=== PATIENT | female | born 1945 | race Caucasian/White ===

== ENCOUNTER → 2016-11-13 11:11 | Outpatient (CLI) | payer MEDICARE, BC ==
[~2016-11-13] VITALS: Ht 162.6 cm; Wt 104.5 kg
--- NOTE | ~2016-11-13 | HEMODYNAMI ---
PATIENT:RUSH PATEL MEDICAL RECORD: [id number] : 47 LOCATION:[facility] ADMISSION DATE: 11/13/16 Generatedon:11/13/201614:08 Patient name: RUSH PATEL Patient #: [id number] SSN: : 1945 Date of study: 11/13/2016 Page: Of Hemodynamic Procedure Report Patient Data Patient Demographics Procedure consent was obtained First Name: RUSH Gender: Female Last Name: AMANDA : 1945 Middle Initial: A Age: 70 year(s) Patient #: [id number] Race: Unknown Additional ID: [id number] Contact details Address: [facility] State: [place] City: [place] Zip code: [address] Past Medical History Allergies Allergen Reaction Date Comments Reported Other 11/13/2016 PCN, allergy Tetracyclines,Erythromycin base Admission Admission Data Admission Date: 11/13/2016 Admission Time: 11:11 Admit Source: Other Height (in.): 64 BSA: 2.08 (m2) Height (cm.): 162.56 BMI: 39.56 (kg/m2) Weight (lbs.): 230.47 Weight (kg.): 104.54 Lab Results Lab Result Date: 11/13/2016 Lab Result Time: 12:17 Biochemistry Name Units Result Min Max BUN mg/dl 22 --(----)-* 7 18 Creatinine mg/dl 1.4 --(----)*- 0.6 1.3 CBC Name Units Result Min Max Hematocrit % 41.3 -*(----)-- 42 54 Hemoglobin g/dl 12.9 -*(----)-- 13.5 17.5 Coagulation Name Units Result Min Max INR units 1.24 --(----)*- 0.85 1.17 PT sec 15.5 --(----)*- 11.6 15 Procedure Procedure Types Cath Procedure Diagnostic Procedure [facility] w/Coronaries Miscellaneous Procedures Moderate Sedation up to 15 minutes Procedure Description Procedure Date Procedure Date: 11/13/2016 Procedure Start Time: 13:56 Procedure End Time: 14:05 Procedure Staff Name Function Teodoro Cabello MD Performing Physician Alfredo Paul RT Scrub Silvio Kim RN Nurse Kathrin Cortes RT Monitor Berhane Welch RN Security Systems Integrator Procedure Data Cath Procedure Fluoroscopy Diagnostic fluoroscopy Total fluoroscopy Time: 1 time: 1 min min Diagnostic fluoroscopy Total fluoroscopy dose: 268 dose: 268 mGy mGy Contrast Material Contrast Material Type Amount (ml) Isovue 300 63 Entry Location Entry Primary Successful Side Size Upsize Upsize Entry Closure Succes sful Closure Location (Fr) 1 (Fr) 2 (Fr) Remarks Device Remarks Femoral Right 5 Fr Exoseal artery Estimated blood loss: 10 ml Diagnostic catheters Device Type Used For End Catheter Placement Cordis 5Fr JL 4.0 Procedure Catheter (MP) Cordis 5Fr 3DRC Catheter Procedure (MP) Cordis 5Fr Pigtail Procedure Catheter (MP) Procedure Complications No complications Procedure Medications Medication Administration Route Dosage Oxygen NC 2 l/min Lidocaine 2% added to field 20 Heparin Flush Bag added to field 2 bags (1000units/500ml NS) 0.9% NaCl I.V. 100 ml/hr Versed I.V. 1 mg Fentanyl I.V. 50 mcg Versed I.V. 1 mg Fentanyl I.V. 50 mcg Fentanyl I.V. 50 mcg Hemodynamics Rest BSA: 2.08 (m2) HGB: 12.9 (g/dl) O2 Consumption: Estimated: 220.52 (ml/min) O2 Co nsumption indexed: Estimated:106.02 (ml/min/m) Heart Rate: 106 (bpm) Pressure Samples Time Site Value (mmHg) Purpose Heart Use Rate(bpm) 14:01 LV 165/7,34 Snapshot 77 14:02 AO 151/73(105) Pullback 81 14:02 LV 180/15,40 Pullback 81 Gradients Valve Time Site 1 Site 2 Mean SEP/DFP Peak To Heart Use (mmHg) (sec/min) Peak Rate (mmHg) (bpm) Aortic 14:02 LV AO 31 27 29 81 180/15,40 151/73(105) Calculations Valve P-P Mean Valve Index Valve Source Name Gradient Area Flow (cm2) Aortic 29 31 29 31 Snapshots Pre Cath Intra NCS Post Cath Vital Signs Time Heart Resp SPO2 NIBP (mmHg) Rhythm Pain Sedation Rate (ipm) (%) Status Level (bpm) 13:42:20 65 29 99 141/73(129) NSR 0 (11) 10(A) , No pain 13:46:42 70 27 100 160/73(129) NSR 0 (11) 10(A) , No pain 13:51:04 78 16 97 137/70(115) NSR 0 (11) 9(A) , No pain 13:55:22 77 17 97 122/61(98) NSR 0 (11) 9(A) , No pain 13:59:39 78 16 98 132/65(106) NSR 0 (11) 9(A) , No pain 14:03:57 79 17 98 136/71(119) NSR 0 (11) 10(A) , No pain Medications Time Medication Route Dose Verified Delivered Reason Notes Effec tiveness by by 13:40:46 Oxygen NC 2 Teodoro Donitaie used for l/min [facility] Chuck Kim RN procedure 13:40:54 Lidocaine 2% added 20ml Teodoro Teodoro used for to vial [place] procedure field MD EISENBERG 13:41:01 Heparin Flush added 2 Teodoro Teodoro [facility] ([facility]500[facility] field MD EISENBERG NS) 13:41:11 0.9% NaCl I.V. 100 Teodoro Buffie Per ml/hr [facility]. Chuck Kim RN physician 13:47:57 Versed I.V. 1 mg Teodoro Buffie for [facility]. Chuck Kim RN sedation 13:48:04 Fentanyl I.V. 50 Te[address] Buff[address] for mcg [address] Chuck Kim RN sedation 13:55:01 Versed I.V. 1 mg Teodoro Buffie for [facility] Chuck Kim RN sedation 13:55:05 Fentanyl I.V. 50 Te[address] Buff[address] for mcg [address] Chuck Kim RN sedation 14:01:49 Fentanyl I.V. 50 Te[address] for mcg [address] Chuck Kim RN sedation Procedure Log Time Note 13:27:35 Informed consent obtained and on chart 13:27:38 Admit Source: Other 13:27:52 Diagnostic Cath status Elective 13:28:02 Berhane Welch RN sent for patient. Start room use. 13:28:02 Time tracking: Regular hours 13:28:06 Plan of Care:Hemodynamics will remain stable., Cardiac rhythm will remain stable., Comfort level will be maintained., Respiratory function will remain adequate., Patient/ family verbilizes understanding of procedure., Procedure tolerated without complication., Recovers from procedure without complications.. 13:28:13 H&P Date Dictated: 11/13/2016 New H&P dictated by physician.. 13:30:03 Lab Result : BUN 22 mg/dl 13:30: Lab Result : Hemoglobin 12.9 g/dl 13:30: Lab Result : Creatinine 1.4 mg/dl 13:30: Lab Result : Hematocrit 41.3 % 13:30: Lab Result : PT 15.5 sec 13:30: Lab Result : INR 1.24 units 13:30:11 Patient Height : 162.56 cm 13:30:17 Patient Weight : 104.54 kg 13:30:28 Patient received from Pre/Post Procedure Room to [facility] 2 Alert and oriented. Tansferred to table in Supine position. 13:30:29 Warm blankets applied, and gumaro hugger turned on for patient comfort. 13:30:29 Correct patient and procedure confirmed by team. 13:30:30 ECG and BP/O2 sat monitors applied to patient. 13:30:32 Pre-procedure instructions explained to patient. 13:30:33 Pre-op teaching completed and patient verbalized understanding. 13:30:34 Family in patients room. 13:30:35 Patient NPO since Midnight. 13:31:17 Patient allergic to Other allergyPCN, Tetracyclines,Erythromycin base 13:33:29 H&P Date Dictated: 11/13/2016 Within 30 days and on chart., H&P Addendum completed by physician on day of procedure. (MUST COMPLETE FOR ALL OUTPATIENTS). 13:40:46 Oxygen 2 l/min NC was administered by Silvio Kim RN; used for procedure; 13:40:54 Lidocaine 2% 20ml vial added to field was administered by Teodoro Cabello MD; used for procedure; 13:41:01 Heparin Flush Bag (1000units/500ml NS) 2 bags added to field was administered by Teodoro Cabello MD; used for procedure; 13:41:11 0.9% NaCl 100 ml/hr I.V. was administered by Silvio Kim RN; Per physician; 13:41:14 Vital chart was started 13:44:59 Baseline sample Acquired. 13:45:20 Rhythm: sinus rhythm 13:45:21 Full Disclosure recording started 13:45:28 Is the patient allergic to Iodine/contrast media? No. 13:45:31 Is patient on blood thinner?Yes 13:45:34 Patient diabetic? No. 13:45:41 Snore? Yes 13:45:43 Sleep apnea? No 13:45:46 Sticks out tongue? No 13:45:53 Dentures? No ? 13:46:01 Patient pain scale 0/10 ?. 13:46:13 IV patent on arrival in left forearm with 0.9% NaCl at [facility]. 13:46:21 Lab results completed and on chart. 13:46:25 Right groin area was prepped with chlora-prep and draped in sterile fashion 13:46:27 Alarms reviewed by R. N. 13:46:31 Sharps counted by scrub and verified by R.N. 13:46:46 Physician paged 13:46:47 Physician arrived 13:47:28 --------ALL STOP TIME OUT------ 13:47:29 Final Timeout: patient, procedure, and site verified with staff and physician. All members of the team are in agreement. 13:47:33 Right groin site verified by team. 13:47:40 Sedation plan: IV Moderate Sedation Versed, Fentanyl 13:47:45 Use device set Femoral Dx 13:47:46 Acist Syringe opened to sterile field. 13:47:47 Bag Decanter opened to sterile field. 13:47:47 Medline Cath Pack opened to sterile field. 13:47:48 Terumo 5Fr Captain Cook Sheath opened to sterile field. 13:47:48 St Prashant 260cm J .035 wire opened to sterile field. 13:47:49 Acist Hand Control opened to sterile field. 13:47:50 Acist Manifold opened to sterile field. 13:47:50 Diagnostic Infinity 5Fr Multipack catheter opened to sterile field. 13:47:51 Tegaderm 4 x 4 opened to sterile field. 13:47:57 Versed 1 mg I.V. was administered by Silvio Kim RN; for sedation; 13:48:04 Fentanyl 50 mcg I.V. was administered by Silvio Kim RN; for sedation; 13:55:01 Versed 1 mg I.V. was administered by Silvio Kim RN; for sedation; 13:55:05 Fentanyl 50 mcg I.V. was administered by Silvio Kim RN; for sedation; 13:56:06 Procedure started. 13:56:42 Local anesthetic to right femoral artery with Lidocaine 2% by Teodoro Cabello MD.INITIAL ACCESS ONLY 13:56:55 A 5 Fr sheath was inserted into the Right Femoral artery 13:57:04 J wire advanced. 13:57:17 A Cordis 5Fr JL 4.0 Catheter (MP) was advanced over the wire and used for Procedure. 13:57:19 Zero performed for pressure channel P1 13:57:24 Zero performed for pressure channel P1 13:57:31 Zero performed for pressure channel P1 13:57:39 Zero performed for pressure channel P1 13:57:55 LCA angiography performed. 13:58:44 Catheter removed. 13:58:54 A Cordis 5Fr 3DRC Catheter (MP) was advanced over the wire and used for Procedure. 13:59:18 Zero performed for pressure channel P1 13:59:27 Zero performed for pressure channel P1 13:59:37 Zero performed for pressure channel P1 13:59:43 Zero performed for pressure channel P1 13:59:58 Zero performed for pressure channel P1 14:00:24 RCA angiography performed. 14:00:26 Catheter removed. 14:00:34 A Cordis 5Fr Pigtail Catheter (MP) was advanced over the wire and used for Procedure. 14:01:49 Fentanyl 50 mcg I.V. was administered by Silvio Kim RN; for sedation; 14:02:27 Catheter removed. 14:03:32 Cordis 5Fr Exoseal opened to sterile field. 14:03:49 Sheath removed intact; hemostasis achieved with Exoseal to the Right Femoral artery. 14:03:52 Procedure ended.(Physican Out) 14:04:01 Fluoroscopy time 01.00 minutes. 14:04:22 Fluoroscopy dose: 268 mGy 14:04:22 Flurop Dose total: 268 14:04:34 Contrast amount:Isovue 300 63ml. 14:04:36 Sharps counted by scrub and verified by R.N. 14:04:37 Insertion/operative site no bleeding no hematoma. 14:04:41 Post-op/insertion site Right Femoral artery dressed using a 4 x 4 and Tegaderm. 14:04:47 Post Procedure Pulses reassessed and unchanged 14:04:50 Post procedure rhythm: unchanged. 14:04:56 Estimated blood loss: 10 ml 14:04:58 Post procedure instruction explained to patient.Patient verbalizes understanding. 14:05:11 Procedure type changed to Cath procedure, Diagnostic procedure, LHC, LHC w/Coronaries, Miscellaneous Procedures, Moderate Sedation up to 15 minutes 14:05:12 Procedure and supply charges have been captured, reviewed, submitted and are correct. 14:05:31 Procedure Complication : No complications 14:05:34 Vital chart was stopped 14:05:36 See physician's report for complete and final results. 14:05:40 Report given to Pre/Post Procedure Room. 14:05:43 Patient transfered to Pre/Post Procedure Room with Stretcher. 14:05:45 Procedure ended. 14:05:45 Full Disclosure recording stopped 14:05:49 End room use (Document Last) Device Usage Item Name Manufacture Quantity Catalog Hospital Part Current Minimal Lo t# / Number Charge Number Stock Stock Serial# Code Acist Acist 1 70632 067519 622865 [id number] 20 Syringe Medical Systems Inc Bag Microtek 1 2002S 285735 54659 430692 5 Decanter [employer] Inc. Medline Cardinal 1 [id number] 327420 12814 128850 5 Cath Pack Health Terumo 5Fr Terumo 1 USQ720 091291 681877 459570 [address] St Prashant 1 785965 618868 862911 898327 30 260cm J .035 wire Acist Hand Acist 1 04575 685808 504144 413822 5 Control Medical Systems Inc Acist Acist 1 19817 163412 660948 313298 5 Manifold Medical Systems Inc Diagnostic Cardinal 1 AQ9978 503786 87906 235752 30 Infinity Health 5Fr Multipack catheter Tegaderm 4 3M 1 1626W 076522 674973 468329 5 x 4 Cordis 5Fr Cardinal 1 700806 5 JL 4.0 Health Catheter (MP) Cordis 5Fr Cardinal 1 458055 5 3DRC Health Catheter (MP) Cordis 5Fr Cardinal 1 707419 5 Pigtail Health Catheter (MP) Cordis 5Fr Cardinal 1 EX500 147889 134308 341561 10 [facility] Signature Audit [place] Stage Time Signature Unsigned Intra-Procedure 11/13/2016 Kathrin Cortes 2:08:08 PM RT(R) Signatures Monitor : Kathrin Cortes Signature : RT Date : Time : [place] [address] [place] [id number]
[~2016-11-13 11:11] MED LIST: BAYER CHEWABLE81 MG PO; COUMADIN5 MG PO; FERROUS SULFAT325 MG PO; POTASSIUM99 M1 PO; PRAVACHOL20 MG PO; PRILOSEC20 MG PO
[2016-11-13 12:11] VITALS: BP 144/58; Ht 162.6 cm; Wt 104.5 kg
[2016-11-13 12:20] LABS: BASOPHILS 0.7 % (0-2); EOSINOPHILS 2.3 % (0-7); HEMATOCRIT 41.3 % (36.0-48.0); HEMOGLOBIN 12.9 g/dL (12-16); LYMPHOCYTES 30.3 % (15-50); MCHC 31.2 g/dL (31.0-37.0); MCV 89.6 fL (80.0-100.0); MEAN PLATELET VOLUME 10.7 fL (7.4-10.4); MONOCYTES 9.9 % (2-11); NEUTROPHILS 56.8 % (40-80); PLATELET COUNT 193 10x3/uL (130-400); RBC 4.61 10x6/uL (4.00-5.40); RDW 17.7 % (11.5-14.5); WBC 5.7 10x3/uL (4.8-10.8)
[2016-11-13 12:36] LABS: INR 1.24 (0.85-1.17); PROTIME 15.5 SECONDS (11.6-15.0)
[2016-11-13 12:41] LABS: ANION GAP 12.1 mmol/L (8-16); CALCIUM 9.4 mg/dL (8.5-10.1); CARBON DIOXIDE 27.6 mmol/L (21.0-32.0); CREATININE - SERUM 1.4 mg/dL (0.6-1.3); POTASSIUM - SERUM 4.7 mmol/L (3.5-5.1)
--- NOTE | 2016-11-13 14:30 | NUR ---
RIGHT GROIN CDI,NO HEMATOMA OR BLEEDING AT SITE, SOFT TO TOUCH, FRIEND AT SIDE
--- NOTE | 2016-11-13 15:00 | NUR ---
NO CHANGES IN RIGHT GROIN
--- NOTE | 2016-11-13 16:30 | NUR ---
IV D'C WITH CATH TIP INTACT, UP TO RESTROOM-VOID, WRITTEN AND VERBAL D'C INSTRUCTIONS GIVEN TO PT AND FRIEND- VERBAL UNDER STANDING NOTED. D'C HOME WITH FRIEND
--- NOTE | 2016-11-15 13:55 | OP ---
PATIENT NAME: RUSH PATEL MEDICAL RECORD: [id number] :47 LOCATION:D.CAT ADMISSION DATE: SURGEON: SHAWNA VELA MD DATE OF OPERATION: 11/13/2016 PROCEDURE: Left heart catheterization, selective coronary angiography, right femoral artery approach. CATHETERS: A 5-Greenlandic sheath, 5/4 left and right Sherry, 5/4 pig. The procedure was well tolerated. The patient returned to kyle, sheath removed. ExoSeal device was placed. FINDINGS: Left ventriculography in 30-degree STOUT view: Normal wall motion and normal systolic function. CORONARY ANATOMY: LEFT MAIN: Left main is free of disease. LAD: Free of disease in the diagonal system. CIRCUMFLEX: Free of disease in the marginal system. RIGHT CORONARY ARTERY: Dominant artery, gives rise to PDA, free of disease. IMPRESSION: Normal systolic function. Normal coronary anatomy. TRANSINT:[id number] Voice Confirmation ID: [id number] DOCUMENT ID: [id number] SHAWNA VELA MD at 1355 CC: [id number] DICTATION DATE: 11/13/16 1406 BONE CHAR KILN TENDER: 11/13/16 2324 DEP CLI 11/13/16 [place] [address] [place] [address]
--- NOTE | 2016-11-15 13:55 | HP ---
PATIENT: RUSH PATEL MEDICAL RECORD: [id number] ACCOUNT: [id number] LOCATION:ANI : 47 ADMISSION DATE: 11/13/16 HISTORY AND PHYSICAL EXAMINATION HISTORY OF PRESENT ILLNESS: A 70-year-old lady with a history of dyslipidemia as well as hypertension, began having chest pain on exertion. She underwent treadmill stress testing was indeterminate, but with no ST changes, with reproduction of symptoms with low workload. She is being admitted for diagnostic angiography. PAST MEDICAL HISTORY: 1. History of dyslipidemia. 2. Gastroesophageal reflux disease. 3. Iron deficiency anemia. SOCIAL HISTORY: Nonsmoker, nondrinker. She takes care of all of her ADLs REVIEW OF SYSTEMS: The patient reports easy bruising but reports no swollen glands. The patient reports no fever, no night sweats, no significant weight gain, no significant weight loss. No significant exercise tolerance. The patient reports no dry eyes, no irritation, no vision change. Patient reports no difficulty hearing and no ear pain. Patient reports no frequent nose bleeds or nose and sinus problems. Patient reports on arm pain on exertion. No shortness of breath while lying down. No history of heart murmur. Patient reports no cough, no wheezing or coughing up blood. Patient reports no abdominal pain, no vomiting. Normal appetite. No diarrhea and not vomiting blood. No nausea and no constipation. Patient reports no incontinence. No difficulty urinating. No hematuria. No increased frequency. Patient reports no muscle aches. No weakness, no arthralgias, no back pain. No swelling of the extremities. Patient reports no abnormal mole, no jaundice, no rashes. Reports no loss of consciousness. No weakness and no numbness. No seizures, dizziness, or headaches. The patient reports no depression, no sleep disturbance, feeling safe in a relationship and no alcohol abuse. Patient reports on fatigue. Reports no runny nose or sinus pressure. No itching, no hives, and no frequent sneezing. PHYSICAL EXAMINATION: GENERAL: Pleasant female in no acute distress, appears stated age. HEENT: Normocephalic, atraumatic. NECK: No bruits noted. HEART: Regular, II/ systolic ejection murmur. LUNGS: Good air excursion. ABDOMEN: Soft, nontender. EXTREMITIES: Pulse 2+. No edema. IMPRESSION: Clinically positive with electocardiographically indeterminate treadmill stress testing. PLAN: For angiography. TRANSINT:[id number] Voice Confirmation ID: [id number] DOCUMENT ID: [id number] HISTORY AND PHYSICAL [id number] RUSH PATEL GREGORY A MD at 1355 CC: [id number] DICTATION DATE: 11/13/16 1335 DRUG ROOM OPERATOR: 11/13/16 1518 DEP CLI 11/13/[address] [address]
== END | disposition home or self-care (01) ==
LOC: D.CATH 11:11
PROVIDERS: Internal Medicine Interventional Cardiology
DX: I20.9 Angina pectoris, unspecified (principal); R94.30 Abnormal result of cardiovascular function study, unspecified; Z01.812 Encounter for preprocedural laboratory examination

== ENCOUNTER 2017-01-03 11:57 | Day surgery (SDC) | payer MEDICARE, BC ==
[2017-01-03 13:56] LABS: HEMATOCRIT 41.4 % (36.0-48.0); HEMOGLOBIN 13.1 g/dL (12-16); MCHC 31.6 g/dL (31.0-37.0); MCV 91.6 fL (80.0-100.0); MEAN PLATELET VOLUME 10.6 fL (7.4-10.4); RBC 4.52 10x6/uL (4.00-5.40); RDW 15.8 % (11.5-14.5); WBC 4.9 10x3/uL (4.8-10.8)
[2017-01-03] MEDS ORDERED: CLEOCIN HCL300 MG PO (14:08)
[2017-01-03 14:17] VITALS: BP 127/59; BMI 40.6
[2017-01-03 14:24] LABS: INR 1.14 (0.85-1.17); PROTIME 14.5 SECONDS (11.6-15.0)
--- NOTE | 2017-01-03 16:49 | NUR ---
1615--DR OJEDA IN ROOM REPORTING TO PT. RATNA YEUNG 1620--IV DC'D. RATNA YEUNG 1638--DISCHARGE INSTRUCTIONS GIVEN, PT VERBALIZES UNDERSTANDING. PT OFF UNIT VIA WC. RATNA YEUNG
--- NOTE | 2017-01-05 16:01 | OP ---
PATIENT NAME: RUSH PATEL MEDICAL RECORD: [id number] :47 LOCATION:[facility] ADMISSION DATE: SURGEON: KENDRA OJEDA MD DATE OF OPERATION: 01/03/2017 PROCEDURE: Colonoscopy with ileoscopy and biopsy. REFERRING PHYSICIAN: Gary Escobedo DO INDICATIONS: Ms. Patel is a delightful 71-year-old woman with history of DVT, on Coumadin therapy. She has had approximately 2-year history of diarrhea. Additionally, she has had hematochezia and has iron-deficiency anemia. She presents for outpatient colonoscopy. PREMEDICATIONS: Total IV anesthesia (propofol 300 mg). INSTRUMENT: Olympus video colonoscope. PROCEDURE AND FINDINGS: After receiving informed consent, Ms. Patel was placed in left lateral decubitus position and sedated as per anesthesia. After achieving adequate level of sedation, digital rectal exam was performed that showed few external hemorrhoidal tags. No fissure or fistulas. Normal sphincter tone. No palpable rectal masses. Colonoscope was introduced per rectally and advanced to the cecum without difficulty. The cecum, IC valve, and appendiceal orifice were identified and appeared normal. The terminal ileum was intubated and the distal small bowel mucosa was without erythema or ulcers. As the colonoscope was withdrawn, careful inspection was made of the erickson of the colon. Overall mucosa had normal vascular and fold pattern. Random colon biopsies were obtained to rule out microscopic colitis. In the sigmoid colon, were several diverticula, nonhemorrhagic. Retroflexion in the rectum showed mild internal hemorrhoids. A cygj-ah-ogvb prep was present. Ms. Patel tolerated the procedure well. No immediate complications. ASSESSMENT: 1. Normal terminal ileum and normal terminal ileal mucosa. 2. Mild sigmoid diverticulosis coli. 3. Mild internal hemorrhoids, likely source of hematochezia. 4. Iron-deficiency anemia. RECOMMENDATIONS: 1. Followup histopathology. 2. Recommend EGD to rule out upper GI etiology of her anemia. 3. Probiotics. TRANSINT:[id number] Voice Confirmation ID: [id number] DOCUMENT ID: [id number] KENDRA OJEDA MD at 1601 CC: GARY ESCOBEDO DO [id number] DICTATION DATE: 01/03/17 1524 ROOFING FOREMAN: 01/03/17 8503 [facility] 01/03/17 [facility] [address] [place] [id number]
== END 2017-01-03 16:35 | disposition home or self-care (01) ==
LOC: D.OPS 11:57
PROVIDERS: Anesthesiology; Internal Medicine Gastroenterology
DX: D50.9 Iron deficiency anemia, unspecified (principal); R19.7 Diarrhea, unspecified; N28.9 Disorder of kidney and ureter, unspecified; Z01.812 Encounter for preprocedural laboratory examination

== ENCOUNTER → 2017-02-26 13:10 | Outpatient (CLI) | payer MEDICARE, BC ==
[~2017-02-26 13:10] MED LIST changes: +CLEOCIN HCL300 MG PO
== END | disposition home or self-care (01) ==
LOC: D.MAMMO 11:15
DX: Z12.31 Encounter for screening mammogram for malignant neoplasm of breast (principal)

== ENCOUNTER 2018-07-18 13:30 | Day surgery (SDC) | payer MEDICARE, BC ==
[2018-07-18 14:21] LABS: HEMATOCRIT 43.1 % (36.0-48.0); HEMOGLOBIN 13.9 g/dL (12-16); MCH 30.3 pg (26.0-34.0); MCHC 32.3 g/dL (31.0-37.0); MCV 93.9 fL (80.0-100.0); RBC 4.59 10x6/uL (4.00-5.40); RDW 14.2 % (11.5-14.5); WBC 6.5 10x3/uL (4.8-10.8)
[2018-07-18 14:29] LABS: ANION GAP 15.5 mmol/L (8-16); CALCIUM 9.5 mg/dL (8.5-10.1); CARBON DIOXIDE 25.9 mmol/L (21.0-32.0); CREATININE - SERUM 1.6 mg/dL (0.6-1.3); POTASSIUM - SERUM 4.4 mmol/L (3.5-5.1)
[2018-07-18 14:42] LABS: APTT 26.8 SECONDS (22.8-39.4); INR 1.07 (0.85-1.17); PROTIME 13.4 SECONDS (11.6-15.0)
[2018-07-18 14:49] VITALS: BP 147/66; BMI 40.6
[2018-07-18] MEDS ORDERED: FUROSEMIDE10 MG/M1 IV (14:52)
[2018-07-18] MEDS ORDERED: PREVACID15 MG PO (14:53)
--- NOTE | 2018-07-18 16:45 | NUR ---
REC'D FROM [facility]. ROBBI AT BEDSIDE. APPLE JUICE BROUGHT TO PATIENT.
--- NOTE | 2018-07-18 16:55 | NUR ---
DR OJEDA SPOKE WITH PATIENT. FULL LIQUIDS BROUGHT TO PATIENT.
--- NOTE | 2018-07-18 17:25 | NUR ---
TOLERATED FLUIDS. IV DC'D WITH CATHETER INTACT. WRITTEN AND VERBAL DC INST. GIVEN TO PT. VERBALIZED UNDERSTANDING.
--- NOTE | 2018-07-18 17:45 | NUR ---
DC'D HOME WITH FRIENDS/FAMILY VIA PRIVATE VEHICLE. TAKEN TO VEHICLE VIA WC. STABLE AT TIME OF DC.
--- NOTE | 2018-07-21 12:39 | OP ---
PATIENT NAME: RUSH PATEL MEDICAL RECORD: [id number] :47 LOCATION:D.OPS ADMISSION DATE: SURGEON: KENDRA OJEDA MD DATE OF OPERATION: 07/18/2018 PROCEDURE: EGD with biopsy. REFERRING PHYSICIAN: Gary Escobedo DO INDICATIONS: Ms. 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 She presents for outpatient surveillance EGD. PREMEDICATIONS: Total IV anesthesia (propofol 180 mg). INSTRUMENT: Olympus video gastroscope. PROCEDURE AND FINDINGS: After receiving informed consent, Ms. Patel's posterior pharynx was anesthetized with Cetacaine spray. She was placed in left lateral decubitus position, sedated as per anesthesia. After achieving an adequate level of sedation, gastroscope was introduced per orally and advanced into the duodenum without difficulty. The Z line was located at 25 cm. The GE junction (gastric folds) was present at 30 cm. Moderate to large hiatal hernia is present. Gastric mucosa was without erythema or ulcers and the mucosa appeared normal in the cardia, fundus, body of the stomach, and antrum. Pylorus was patent and competent. Duodenal mucosa was without erythema or ulcers, appeared normal through the second portion. Gastroscope was then withdrawn to the esophagus and then biopsies were taken in 4 quadrants at 30, 28, 26, 25 cm. The scope was then withdrawn. Ms. Patel tolerated procedure well, no immediate complications. ASSESSMENT: 1. 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 2. Moderate to large hiatal hernia. RECOMMENDATIONS: 1. Follow up histopathology. 2. Resume warfarin today. 3. Continue omeprazole 20 mg daily. TRANSINT:[id number] Voice Confirmation ID: [id number] DOCUMENT ID: [id number] KENDRA OJEDA MD at 1239 CC: GARY ESCOBEDO [id number] DICTATION DATE: 07/18/181708 MANAGER SECURITY AND SAFETY: 07/18/187 [facility] 07/18/18 [place] [id number]
== END 2018-07-18 17:45 | disposition home or self-care (01) ==
LOC: D.OPS 13:30
PROVIDERS: Anesthesiology; ATTEND Internal Medicine Gastroenterology
DX: K22.70 Barrett's esophagus without dysplasia (principal); K44.9 Diaphragmatic hernia without obstruction or gangrene; Z01.812 Encounter for preprocedural laboratory examination